=== PATIENT | female | born 1990 | race Caucasian/White ===

== ENCOUNTER 2018-10-28 14:10 | Inpatient (IN) ==
[2018-10-28 14:55] LABS: Bilirubin,Urine Negative (Negative); Blood,Urine Negative (Negative); Clarity,Urine Clear (Clear); Color,Urine Yellow (Yellow); Glucose,Urine (UA) Normal (Normal); Ketones,Urine Negative (Negative); Leukocyte Esterase,Urine Negative (Negative); Nitrite,Urine Negative (Negative); PH,Urine 5.5 pH Units (5.0-8.0); Protein,Urine Negative (Neg-Trace); Specific Gravity,Urine 1.024 (1.010-1.025); Urobilinogen,Urine Normal (Normal)
[2018-10-28] MEDS ORDERED: *HR* LORazepam 1 MG TABLET PO ONE (15:03)
[2018-10-28 15:05] LABS: Amphetamine Screen,Urine Negative ng/mL (Cutoff=1000); Barbiturate Screen,Urine Negative ng/mL (Cutoff=200); Benzodiazepines Screen,Urine Positive ng/mL (Cutoff=200); Cannabinoid Screen,Urine Positive ng/mL (Cutoff = 50); Cocaine Screen,Urine Negative ng/mL (Cutoff= 300); Opiate Screen,Urine Negative ng/mL (Cutoff=300); Phencyclidine Screen,Urine Negative ng/mL (Cutoff=25)
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
[2018-10-28 15:39] LABS: Basophils # 0.1 K/mcL (0.0-0.2); Basophils % 0.6 %; Eosinophils # 0.1 K/mcL (0.0-0.6); Eosinophils % 0.4 %; Hematocrit 35.9 % (35.3-44.9); Hemoglobin 11.7 g/dL (11.5-15.4); Immature Granulocytes % 0.4 % (0-4); Lymphocytes # 3.2 K/mcL (0.6-4.6); Lymphocytes % 22.3 %; Mean Corpuscular HGB Conc 32.6 g/dL (31.6-35.5); Mean Corpuscular Hemoglobin 28.4 pg (28.0-33.3); Mean Corpuscular Volume 87.1 fL (83.0-100.0); Mean Platelet Volume 10.1 fL (9.4-12.4); Monocytes # 0.9 K/mcL (0.0-1.3); Monocytes % 6.5 %; Platelet Count 227 K/mcL (140-400); Red Blood Count 4.12 M/mcL (3.82-4.97); Red Cell Distribution Width 14.3 % (11.5-14.5); Segmented Neutrophils % 69.8 %; White Blood Count 14.4 K/mcL (4.3-11.1)
[2018-10-28] MEDS ORDERED: Ziprasidone 20 MG in Water for inj. (sterile) 1 ML IM ONE (15:47)
[2018-10-28 15:54] LABS: Acetaminophen < 10 mcg/mL (10-20); BUN/Creatinine Ratio 26 (6-26); Blood Urea Nitrogen 17 mg/dL (6-20); Calcium 9.5 mg/dL (8.6-10.3); Carbon Dioxide 21 mEq/L (23-29); Chloride 106 mEq/L (98-107); Ethanol < 10 mg/dL (Less than 10); Glucose 86 mg/dL (70-105); Osmolality,Calculated 285 (280-300); Potassium 4.2 mEq/L (3.5-5.1); Salicylate < 2.5 mg/dL (15.0-30.0); Sodium 137 mEq/L (136-145); eGFR For African Americans > 60 (> 60); eGFR For Non-African Americans > 60 (> 60)
--- NOTE | 2018-10-28 18:44 | Emergency Department Note ---
Disposition Clinical Impression: Acute psychosis Disposition: Admitted As Inpatient Condition: Fair Time of Disposition: 18:37 General Adult HPI - General Chief complaint: ED Psychiatric Symptoms Stated complaint: psych eval/hallucinating Time Seen by Provider: 10/28/18 14:24 Source: patient, family Limitations: other (agitation) - History of Present Illness Pain Scale: 0 - Related Data Home Medications Medication Instructions Recorded Confirmed Aspirin Enteric Coated [Aspirin EC] 81 mg PO DAILY 08/12/16 10/28/18 Tizanidine HCl 4 mg PO Q8H 08/12/16 10/28/18 Buspirone HCl [Buspar] 30 mg PO BID 10/28/18 10/28/18 Cyanocobalamin (B-12) [Vitamin B12] 1,000 mcg PO DAILY 10/28/18 10/28/18 DiphenhydraMINE [Benadryl] 50 mg PO HS 10/28/18 10/28/18 Ergocalciferol (VITAMIN D2) 50,000 unit PO WE 10/28/18 10/28/18 [Vitamin D2] Gabapentin [Neurontin] 600 mg PO TID 10/28/18 10/28/18 HydrOXYzine Pamoate [Vistaril] 50 mg PO BID 10/28/18 10/28/18 Losartan [Cozaar] 100 mg PO DAILY 10/28/18 10/28/18 Magnesium Oxide [Mag-Oxide 400 mg PO DAILY 10/28/18 10/28/18 Magnesium] Metformin HCl [Metformin ER 750 mg PO BIDWM 10/28/18 10/28/18 Osmotic] Oxaprozin [Daypro] 600 mg PO BID 10/28/18 10/28/18 Venlafaxine [Effexor] 100 mg PO BID 10/28/18 10/28/18 Zolpidem [Ambien] 10 mg PO HS 10/28/18 10/28/18 Allergies Allergy/AdvReac Type Severity Reaction Status Date / Time No Known Allergies Allergy Verified 01/30/16 19:37 Constitutional: Denies: fever, chills Eyes: Denies: eye pain ENT ED: Denies: ear pain Cardiovascular: Denies: chest pain, dyspnea on exertion Respiratory: Reports: dyspnea Gastrointestinal: Reports: abdominal pain. Denies: vomiting, diarrhea Genitourinary: Reports: dysuria. Denies: urgency, frequency Musculoskeletal: Denies: back pain Integumentary: Denies: rash Neurological: Reports: headache Psychiatric: Reports: anxiety, depression, suicidal thoughts, auditory hallucinations. 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 history: Reports: polycystic ovary syndrome - Social History Smoking Status: Never smoker Smokeless Tobacco Status: No Alcohol use: Reports: none Drug use: Reports: none Physical Exam - General Limitations: other (agitation) General appearance: alert, anxious Course Vital Signs Temperature 98.0 F 10/28/18 14:11 Pulse Rate 99 10/28/18 14:11 Respiratory Rate 20 10/28/18 14:11 Blood Pressure 149/98 10/28/18 14:11 O2 Sat by Pulse Oximetry 100 10/28/18 14:11 Temperature 98.9 F 10/28/18 20:29 Pulse Rate 120 10/28/18 20:29 Respiratory Rate 16 10/28/18 20:29 Blood Pressure 157/84 10/28/18 20:29 O2 Sat by Pulse Oximetry 100 10/28/18 20:29 Oxygen Delivery Oxygen Delivery Room Air Medical Decision Making - Lab Data Result diagrams: 10/28/18 15:06 10/28/18 15:06 Lab Results 10/28/18 10/28/18 10/28/18 Range/Units 14:45 14:45 14:45 WBC (4.3-11.1) K/mcL RBC (3.82-4.97) M/mcL Hgb (11.5-15.4) g/dL Hct (35.3-44.9) % MCV (83.0-100.0) fL MCH (28.0-33.3) pg MCHC (31.6-35.5) g/dL RDW (11.5-14.5) % Plt Count (140-400) K/mcL MPV (9.4-12.4) fL Immature Gran % (0-4) % Seg Neutrophils % % Lymphocytes % % Monocytes % % Eosinophils % % Basophils % % Neutrophils # (1.6-8.9) K/mcL Lymphocytes # (0.6-4.6) K/mcL Monocytes # (0.0-1.3) K/mcL Eosinophils # (0.0-0.6) K/mcL Basophils # (0.0-0.2) K/mcL Sodium (136-145) mEq/L Potassium (3.5-5.1) mEq/L Chloride (98-107) mEq/L Carbon Dioxide (23-29) mEq/L BUN (6-20) mg/dL Creatinine (0.60-1.20) mg/dL Est GFR ( Amer) (> 60) Est GFR (Non-Af Amer) (> 60) BUN/Creatinine Ratio (6-26) Glucose (70-105) mg/dL Calculated Osmolality (280-300) Calcium (8.6-10.3) mg/dL Urine Color Yellow (Yellow) Urine Clarity Clear (Clear) Urine pH 5.5 (5.0-8.0) pH Units Ur Specific [place] 1.024 (1.010-1.025) Urine Protein Negative (Neg-Trace) mg/dL Urine Glucose (UA) Normal (Normal) mg/dL Urine Ketones Negative (Negative) mg/dL Urine Blood Negative (Negative) Urine Nitrite Negative (Negative) Urine Bilirubin Negative (Negative) Urine Urobilinogen Normal (Normal) mg/dL Ur Leukocyte Esterase Negative (Negative) Urine Test Negative (Negative) Salicylates (15.0-30.0) mg/dL Urine Opiates Screen Negative (Wjjgzb=308) ng/mL Ur Buprenorphine Scrn Negative (Cutoff=5) ng/mL Acetaminophen (10-20) mcg/mL Ur Barbiturates Screen Negative (Lvnguz=325) ng/mL Ur Phencyclidine Scrn Negative (Cutoff=25) ng/mL Ur Amphetamines Screen Negative (Xwzqlu=3388) ng/mL U Benzodiazepines Scrn Positive H (Vibfyz=948) ng/mL Urine Cocaine Screen Negative (Cutoff= 300) ng/mL U Marijuana (THC) Screen Positive H (Cutoff = 50) ng/mL Ur Drug Screen Interp See Below Ethyl Alcohol (Less than 10) mg/dL 10/28/18 10/28/18 Range/Units 15:06 15:06 WBC 14.4 H (4.3-11.1) K/mcL RBC 4.12 (3.82-4.97) M/mcL Hgb 11.7 (11.5-15.4) g/dL Hct 35.9 (35.3-44.9) % MCV 87.1 (83.0-100.0) fL MCH 28.4 (28.0-33.3) pg MCHC 32.6 (31.6-35.5) g/dL RDW 14.3 (11.5-14.5) % Plt Count 227 (140-400) K/mcL MPV 10.1 (9.4-12.4) fL Immature Gran % 0.4 (0-4) % Seg Neutrophils % 69.8 % Lymphocytes % 22.3 % Monocytes % 6.5 % Eosinophils % 0.4 % Basophils % 0.6 % Neutrophils # 10.0 H (1.6-8.9) K/mcL Lymphocytes # 3.2 (0.6-4.6) K/mcL Monocytes # 0.9 (0.0-1.3) K/mcL Eosinophils # 0.1 (0.0-0.6) K/mcL Basophils # 0.1 (0.0-0.2) K/mcL Sodium 137 (136-145) mEq/L Potassium 4.2 (3.5-5.1) mEq/L Chloride 106 (98-107) mEq/L Carbon Dioxide 21 L (23-29) mEq/L BUN 17 (6-20) mg/dL Creatinine 0.66 (0.60-1.20) mg/dL Est GFR ( Amer) > 60 (> 60) Est GFR (Non-Af Amer) > 60 (> 60) BUN/Creatinine Ratio 26 (6-26) Glucose 86 (70-105) mg/dL Calculated Osmolality 285 (280-300) Calcium 9.5 (8.6-10.3) mg/dL Urine Color (Yellow) Urine Clarity (Clear) Urine pH (5.0-8.0) pH Units Ur Specific [place] (1.010-1.025) Urine Protein (Neg-Trace) mg/dL Urine Glucose (UA) (Normal) mg/dL Urine Ketones (Negative) mg/dL Urine Blood (Negative) Urine Nitrite (Negative) Urine Bilirubin (Negative) Urine Urobilinogen (Normal) mg/dL Ur Leukocyte Esterase (Negative) Urine Test (Negative) Salicylates < 2.5 L (15.0-30.0) mg/dL Urine Opiates Screen (Dyqfdi=522) ng/mL Ur Buprenorphine Scrn (Cutoff=5) ng/mL Acetaminophen < 10 L (10-20) mcg/mL Ur Barbiturates Screen (Mdfznm=514) ng/mL Ur Phencyclidine Scrn (Cutoff=25) ng/mL Ur Amphetamines Screen (Mdphjt=1402) ng/mL U Benzodiazepines Scrn (Ofnpus=509) ng/mL Urine Cocaine Screen (Cutoff= 300) ng/mL U Marijuana (THC) Screen (Cutoff = 50) ng/mL Ur Drug Screen Interp Ethyl Alcohol < 10 (Less than 10) mg/dL Attestation Statement - Attestation Attestation: I examined this patient and my medical decision-making was reviewed with the Resident Physician. I agree with the documented findings, disposition and treatment plan as described except to the extent set forth below. Patient 28-year-old female presents to emergency department with chief complaint of talking to demons and talking to God's. Physical exam patient is awake alert and oriented. sHe has no focal neurological deficits patient is acutely psychotic in the room Medical decision management patient underwent clearance labs that were negative patient had an EKG performed that showed no evidence of acute ischemic changes. This was discussed with 1 I evaluated the patient and felt patient would benefit from acute hospitalization I personally supervised and was present for the devi/critical portions of the following procedures completed by the resident:EKG.
[2018-10-28] MEDS ORDERED: Ibuprofen 400 MG TABLET PO PRN (19:27)
[2018-10-28] MEDS ORDERED: MOM Conc 10 ML UD.LIQ PO PRN (19:27)
[2018-10-28] MEDS ORDERED: Mag Hydrox/Al Hydrox/Simeth 30 ML UDC PO PRN (19:27)
[2018-10-28] MEDS ORDERED: Haloperidol Lactate 5 MG/ML VIAL IM PRN (19:27)
[2018-10-28] MEDS ORDERED: *HR* LORazepam 2 MG/ML VIAL IM PRN (19:27)
[2018-10-28] MEDS ORDERED: *HR* LORazepam 1 MG TABLET PO PRN (19:27)
[2018-10-28] MEDS: hydrOXYzine pamoate 25 MG CAPSULE PO SCH (21:14)
[2018-10-28] MEDS: Acetaminophen 325 MG TABLET PO PRN (21:15)
[2018-10-28] MEDS: traZODone 50 MG TABLET PO PRN (22:00)
[2018-10-28] MEDS: Gabapentin 300 MG CAPSULE PO SCH (22:01)
[2018-10-28] MEDS: tiZANidine 4 MG TABLET PO SCH (22:01)
[2018-10-29] MEDS: traZODone 50 MG TABLET PO PRN ×2 (02:06→22:12)
[2018-10-29] MEDS: tiZANidine 4 MG TABLET PO SCH ×3 (04:07→20:27)
[2018-10-29] MEDS: Magnesium Oxide 400 MG TABLET PO SCH (09:24)
[2018-10-29] MEDS: Gabapentin 300 MG CAPSULE PO SCH ×3 (09:24→22:11)
[2018-10-29] MEDS: Aspirin Enteric Coated 81 MG Tablet PO SCH (09:24)
[2018-10-29] MEDS: Cyanocobalamin (B-12) 1,000 MCG TABLET PO SCH (09:24)
[2018-10-29] MEDS: *HR* Metformin 500 MG TABLET PO SCH ×2 (09:25→16:44)
[2018-10-29] MEDS: hydrOXYzine pamoate 25 MG CAPSULE PO SCH ×2 (09:26→20:27)
--- NOTE | 2018-10-29 11:24 | Psychiatry History & Physical ---
Date of Encounter: 10/29/18 Time of Encounter: 11:15 History of Present Illness Patient Stated Chief Complaint: hallucinating Medicare Admission Attestation: For traditional Medicare patients the provided hospital inpatient services are reasonable and necessary and in the case of services not specified as inpatient-only under 42 CFR 419.22 (n), that they are appropriately provided as inpatient services in accordance 42 CFR 412.3. For Critical Access Hospital the patient may reasonably be expected to be discharged or transferred to a hospital within 96 hours after admission to the Critical Access Hospital. Admitted From: Home Plans for Post Hospital Care: Home History of Present Illness: Ms. Cervantes is a 28 year old female who was admitted secondary to hallucinations and worsening depression and anxiety. Client states she has never had a mental health hospitalization before. Currently goes to "[facility]" and sees an VENEER MARKER for management of her mood disorder. Prescribed Effexor with limited benefit. Experiences SI but has never made an attempt and currently has no intent or plan. Denies current or past HI. Reportedly was delusional with christianity preoccupation and AH. Does not present that way to this keno writer/runner today. Seems anxious and lower functioning but not outwardly psychotic. Client did say she believes she has a blood clot in the back of her neck as she feels a knot and has pain there. Also believes she hears the voice of God. No responding to IS. Physically she is obese with PCOS, HTN, and Fibromyalgia. Has a medical marijuana card which client says is for Fibromyalgia. Reports THC does make her paranoid. However, she denies smoking "since being in this state." Denies other AOD use. Strong family history of mental illness. Maternal grandmother was reportedly mentally ill. A maternal cousin has Schizophrenia, a sister has Bipolar Disorder and a brother has ADHD. Discussed treatment options and client would like to try Abilify. It should help with her depression in addition to serving as an antipsychotic if needed. Past Med Surg Social Fam HX - Past Medical History Medical history: fibromyalgia, hypertension - Past Psychiatric History Psychiatric history: Reports: anxiety, depression Family psychiatric history: Yes Family Psychiatric History Details: maternal grandmother-mentally ill, maternal cousin-schizophrenia, sister-bipolar disorder, brother-adhd Family History of Suicide: None - Past Surgical History Surgical History: cholecystectomy, other - Social History Smoking Status: Never smoker Smokeless Tobacco Status: No Alcohol use: none Drug use: marijuana - Family History Mother Adopted: No Family Member Ethnicity: Non- Living Status: Still Living Hx Family Cardiac Disorders: No Hx Family Respiratory Disorders: No Hx Family Cancer: No Hx Family GI Disorders: No Hx Family Endocrine Disorder: No Hx Family Neuromuscular Disorders: No Hx Family Neurologic Disorders: Yes (seizures, neuropathy, fibromyalgia) Hx Family HEENT Disorders: No Hx Family Autoimmune Disorders: No Medications & Allergies Aspirin Enteric Coated [Aspirin EC] 81 mg PO DAILY 08/12/16 [History] Tizanidine HCl 4 mg PO Q8H 08/12/16 [History] Buspirone HCl [Buspar] 30 mg PO BID 10/28/18 [History] Cyanocobalamin (B-12) [Vitamin B12] 1,000 mcg PO DAILY 10/28/18 [History] DiphenhydraMINE [Benadryl] 50 mg PO HS 10/28/18 [History] Ergocalciferol (VITAMIN D2) [Vitamin D2] 50,000 unit PO WE 10/28/18 [History] Gabapentin [Neurontin] 600 mg PO TID 10/28/18 [History] HydrOXYzine Pamoate [Vistaril] 50 mg PO BID 10/28/18 [History] Losartan [Cozaar] 100 mg PO DAILY 10/28/18 [History] Magnesium Oxide [Mag-Oxide Magnesium] 400 mg PO DAILY 10/28/18 [History] Metformin HCl [Metformin ER Osmotic] 750 mg PO BIDWM 10/28/18 [History] Oxaprozin [Daypro] 600 mg PO BID 10/28/18 [History] Venlafaxine [Effexor] 100 mg PO BID 10/28/18 [History] Zolpidem [Ambien] 10 mg PO HS 10/28/18 [History] Allergy/AdvReac Type Severity Reaction Status Date / Time No Known Allergies Allergy Verified 01/30/16 19:37 Review of Systems Constitutional: Denies: fever, chills, weakness, weight change Eyes: Denies: eye pain, vision change Ears, Nose, Throat: Denies: ear pain, throat pain, dental pain, hearing loss, congestion Cardiovascular: Denies: chest pain, palpitations, dyspnea on exertion Respiratory: Denies: cough, dyspnea, wheezes Gastrointestinal: Denies: abdominal pain, nausea, vomiting, diarrhea, constipation Genitourinary female: Denies: urgency, dysuria, frequency, abnormal menses, dyspareunia Musculoskeletal: Denies: joint swelling, joint pain Integumentary: Denies: rash, lesions, pruritus Neurological: Denies: headache, weakness, numbness, memory loss Endocrine: Denies: fatigue, heat or cold intolerance Hematologic/Lymphatic: Denies: easy bruising, lymphadenopathy Allergic/Immunologic: Denies: urticaria, itchy eyes Exam - HEENT Head exam IM: Present: atraumatic Eye exam IM: Present: EOMI, normal appearance, PERRL ENT exam IM: Present: normal exam - Neurological Neurological exam: Present: CN II-XII intact - Respiratory Respiratory exam IM: Present: CTAB - GI/Abdominal GI/Abdominal exam IM: Present: normal bowel sounds, soft. Absent: tenderness - Extremities Extremities exam IM: Present: full ROM - Skin Skin exam IM: Present: dry, warm - Constitutional Vitals: Temp Pulse Resp BP Pulse Ox 97.7 F 105 18 143/91 100 10/29/18 09:00 10/29/18 09:00 10/29/18 09:00 10/29/18 09:00 10/29/18 09:00 General appearance: obese - Musculoskeletal Gait: normal Station: relaxed Strength & Tone: normal for patient - Psychiatric Patient Orientation: Yes Person, Yes Time, Yes Place Level of alertness: Alert Behavior: calm, cooperative Psychomotor activity: Normal Eye Contact: Maintains Eye Contact Mood Description: Depressed, Anxious Affect description: full range Speech Volume: Normal Speech pattern: normal rate, normal rhythm, normal tone, fluent, spontaneous Language & Vocabulary: consistent with education Thought Process: Linear Thought Content: No Suicidal ideation, No Homicidal ideation, No Overt delusions Perceptual Disturbances: Yes Auditory hallucinations Attention Span Ability: Capable of Focused Attention Memory Description: Grossly Intact Patient Reliability: Reliable Historian Fund of knowledge: Yes below average Intelligence Estimate: Below Average Judgment: Fair Insight: Partial Results - Drug Levels and Toxicology Drug Levels and Toxicology: Drug Levels and Toxicity 10/28/18 10/28/18 14:45 15:06 Urine Opiates Screen Negative Acetaminophen < 10 L Ur Barbiturates Screen Negative Ur Phencyclidine Scrn Negative Ur Amphetamines Screen Negative U Benzodiazepines Scrn Positive H Urine Cocaine Screen Negative U Marijuana (THC) Screen Positive H Ethyl Alcohol < 10 - Labs Labs: Laboratory Last Values WBC 14.4 K/mcL (4.3-11.1) H 10/28/18 15:06 RBC 4.12 M/mcL (3.82-4.97) 10/28/18 15:06 Hgb 11.7 g/dL (11.5-15.4) 10/28/18 15:06 Hct 35.9 % (35.3-44.9) 10/28/18 15:06 MCV 87.1 fL (83.0-100.0) 10/28/18 15:06 MCH 28.4 pg (28.0-33.3) 10/28/18 15:06 MCHC 32.6 g/dL (31.6-35.5) 10/28/18 15:06 RDW 14.3 % (11.5-14.5) 10/28/18 15:06 Plt Count 227 K/mcL (140-400) 10/28/18 15:06 MPV 10.1 fL (9.4-12.4) 10/28/18 15:06 Immature Gran % 0.4 % (0-4) 10/28/18 15:06 Seg Neutrophils % 69.8 % 10/28/18 15:06 Lymphocytes % 22.3 % 10/28/18 15:06 Monocytes % 6.5 % 10/28/18 15:06 Eosinophils % 0.4 % 10/28/18 15:06 Basophils % 0.6 % 10/28/18 15:06 Neutrophils # 10.0 K/mcL (1.6-8.9) H 10/28/18 15:06 Lymphocytes # 3.2 K/mcL (0.6-4.6) 10/28/18 15:06 Monocytes # 0.9 K/mcL (0.0-1.3) 10/28/18 15:06 Eosinophils # 0.1 K/mcL (0.0-0.6) 10/28/18 15:06 Basophils # 0.1 K/mcL (0.0-0.2) 10/28/18 15:06 Sodium 137 mEq/L (136-145) 10/28/18 15:06 Potassium 4.2 mEq/L (3.5-5.1) 10/28/18 15:06 Chloride 106 mEq/L (98-107) 10/28/18 15:06 Carbon Dioxide 21 mEq/L (23-29) L 10/28/18 15:06 BUN 17 mg/dL (6-20) 10/28/18 15:06 Creatinine 0.66 mg/dL (0.60-1.20) 10/28/18 15:06 Est GFR ( Amer) > 60 (> 60) 10/28/18 15:06 Est GFR (Non-Af Amer) > 60 (> 60) 10/28/18 15:06 BUN/Creatinine Ratio 26 (6-26) 10/28/18 15:06 Glucose 86 mg/dL (70-105) 10/28/18 15:06 Calculated Osmolality 285 (280-300) 10/28/18 15:06 Calcium 9.5 mg/dL (8.6-10.3) 10/28/18 15:06 Urine Color Yellow (Yellow) 10/28/18 14:45 Urine Clarity Clear (Clear) 10/28/18 14:45 Urine pH 5.5 pH Units (5.0-8.0) 10/28/18 14:45 Ur Specific [place] 1.024 (1.010-1.025) 10/28/18 14:45 Urine Protein Negative mg/dL (Neg-Trace) 10/28/18 14:45 Urine Glucose (UA) Normal mg/dL (Normal) 10/28/18 14:45 Urine Ketones Negative mg/dL (Negative) 10/28/18 14:45 Urine Blood Negative (Negative) 10/28/18 14:45 Urine Nitrite Negative (Negative) 10/28/18 14:45 Urine Bilirubin Negative (Negative) 10/28/18 14:45 Urine Urobilinogen Normal mg/dL (Normal) 10/28/18 14:45 Ur Leukocyte Esterase Negative (Negative) 10/28/18 14:45 Urine Test Negative (Negative) 10/28/18 14:45 Salicylates < 2.5 mg/dL (15.0-30.0) L 10/28/18 15:06 Urine Opiates Screen Negative ng/mL (Tqbnnu=755) 10/28/18 14:45 Ur Buprenorphine Scrn Negative ng/mL (Cutoff=5) 10/28/18 14:45 Acetaminophen < 10 mcg/mL (10-20) L 10/28/18 15:06 Ur Barbiturates Screen Negative ng/mL (Hgbroh=240) 10/28/18 14:45 Ur Phencyclidine Scrn Negative ng/mL (Cutoff=25) 10/28/18 14:45 Ur Amphetamines Screen Negative ng/mL (Ajnxtm=7407) 10/28/18 14:45 U Benzodiazepines Scrn Positive ng/mL (Thakfh=653) H 10/28/18 14:45 Urine Cocaine Screen Negative ng/mL (Cutoff= 300) 10/28/18 14:45 U Marijuana (THC) Screen Positive ng/mL (Cutoff = 50) H 10/28/18 14:45 Ur Drug Screen Interp See Below 10/28/18 14:45 Ethyl Alcohol < 10 mg/dL (Less than 10) 10/28/18 15:06 Assessment and Plan (1) Major depress dis, severe Current visit: Yes Status: Acute Plan: Admit inpatient for safety and stabilization, Close observation, Suicide Precautions per unit protocol, Encourage participation in unit milieu, Group Therapy, Monitor sleep, Monitor appetite Risks, benefits, side effects, alternatives discussed w/pt: Yes Patient agreeable to treatment: Yes Plans for Post Hospital Care: Home Estimated Length of Stay (Days): 4
[2018-10-29] MEDS: Acetaminophen 325 MG TABLET PO PRN (18:32)
[2018-10-29] MEDS: ARIPiprazole 5 MG TABLET PO SCH (22:12)
[2018-10-30] MEDS: Acetaminophen 325 MG TABLET PO PRN ×2 (01:32→13:33)
[2018-10-30] MEDS: tiZANidine 4 MG TABLET PO SCH ×3 (03:42→22:02)
[2018-10-30] MEDS: *HR* Metformin 500 MG TABLET PO SCH ×2 (09:06→16:05)
[2018-10-30] MEDS: Cyanocobalamin (B-12) 1,000 MCG TABLET PO SCH (09:06)
[2018-10-30] MEDS: Aspirin Enteric Coated 81 MG Tablet PO SCH (09:06)
[2018-10-30] MEDS: hydrOXYzine pamoate 25 MG CAPSULE PO SCH ×2 (09:06→22:00)
[2018-10-30] MEDS: Magnesium Oxide 400 MG TABLET PO SCH (09:06)
[2018-10-30] MEDS: Gabapentin 300 MG CAPSULE PO SCH ×3 (09:07→22:01)
[2018-10-30] MEDS: Ibuprofen 400 MG TABLET PO PRN (11:23)
--- NOTE | 2018-10-30 14:48 | Psychiatry Progress Note ---
Date of Encounter: 10/30/18 Time of Encounter: 11:00 Subjective Interval history: Client seen in common area. She appeared up beat and happy. She still endorses somatic delusion believing she "has a tumor in her neck". She endorses tactile and auditory hallucinations from "god". She describes the hallucinations as pleasant. Affect is congruent with mood. She denies any homicidal or suicidal ideation/plan or intent. Review of Systems Constitutional: Denies: fever, chills, weakness Eyes: Denies: eye pain, vision change Ears, Nose, Throat: Denies: ear pain, epistaxis, congestion, dysphagia Cardiovascular: Denies: chest pain, palpitations, dyspnea on exertion, edema, syncope Respiratory: Denies: cough, dyspnea, wheezes Gastrointestinal: Denies: abdominal pain, nausea, vomiting, diarrhea, constipation Genitourinary female: Denies: urgency, dysuria, frequency, hematuria Musculoskeletal: Reports: other (Described throbbing pain, nonlocalized on posterior neck around T1 to C7. ). Denies: back pain, joint swelling, myalgia Integumentary: Denies: rash, lesions, pruritus Neurological: Reports: headache. Denies: weakness, numbness, memory loss, vertigo Psychiatric: Reports: auditory hallucinations ("hears god"), other (Tactile hallucinations, Describes "god touches my neck when I ask him questions".). Denies: depression, anxiety, abnormal sleep pattern, suicidal ideation, homicidal ideation Results - Vital Signs Vital Signs: Temp Pulse Resp BP Pulse Ox 98 F 100 18 135/94 100 10/30/18 09:00 10/30/18 09:00 10/30/18 09:00 10/30/18 09:00 10/30/18 09:00 Assessment and Plan (1) Acute psychosis Current visit: Yes Status: Acute Plan: Continue hospitalization, Close observation, Suicide Precautions per unit protocol, Encourage participation in unit milieu, Group Therapy, Monitor sleep, Monitor appetite Additional Plan: Will continue current medications and observe for changes in client. Risks, benefits, side effects, alternatives discussed w/pt: Yes Patient agreeable to treatment: Yes Consult Discharge Plan - Plan Referrals: Marcy Fong [facility] [Outside] - Attending Attestation I examined this patient and my medical decision-making was reviewed with the Resident Physician. I agree with the documented findings, disposition and treatment plan as described except to the extent set forth below. Agree with mental status and plan. Psychiatry Exam - Constitutional Vitals: Temp Pulse Resp BP Pulse Ox 98 F 100 18 135/94 100 10/30/18 09:00 10/30/18 09:00 10/30/18 09:00 10/30/18 09:00 10/30/18 09:00 General appearance: age & developmentally appropriate, well-groomed, well- nourished, obese - Musculoskeletal Gait: normal Station: relaxed Strength & Tone: normal for patient - Psychiatric Patient Orientation: Yes Person, Yes Time, Yes Place, Yes Circumstance Level of alertness: Alert, Follows commands Behavior: calm, cooperative Psychomotor activity: Normal Eye Contact: Maintains Eye Contact Mood Description: Euthymic/stable Affect description: congruent with mood Speech Volume: Normal Speech pattern: normal rate, normal rhythm, normal tone, fluent Language & Vocabulary: consistent with education Thought Process: Intact, Logical, Linear, Goal Oriented Thought Content: Yes Intact, No Homicidal ideation, Yes Bahai delusion, Yes Somatic delusion (Client complains "I have a tumor in my neck". No history of diagnosis pertaining to neck or complaint. ) Perceptual Disturbances: Yes Auditory hallucinations, No Visual hallucinations, Yes Tactile hallucinations Attention Span Ability: Capable of Focused Attention, Capable of Sustained Attention Memory Description: Grossly Intact, Immediate Intact Patient Reliability: Reliable Historian Fund of knowledge: Yes abstraction ability Intelligence Estimate: Average Judgment: Fair Insight: Partial
[2018-10-30] MEDS: ARIPiprazole 5 MG TABLET PO SCH (22:00)
[2018-10-31] MEDS: tiZANidine 4 MG TABLET PO SCH ×3 (05:00→22:09)
--- NOTE | 2018-10-31 06:25 | Electrocardiograph Report ---
[facility] Test Date: 2018-10-28 Pat Name: Maya Cervantes Department: EXAM3 Room: 43 Gender: F Prenatal Genetic Counselor: : 1990 Requested By: Kasi Finn Order Number: [id number] Reading MD: Tyler Omer Measurements Intervals [place] Rate: 102 P: 22 IN: 142 QRS: 8 QRSD: 89 T: 16 QT: 357 QTc: 465 Interpretive Statements Sinus tachycardia Electronically Signed On 10-31-2018 6:23:37 EDT by Tyler Omer
[2018-10-31] MEDS: *HR* Metformin 500 MG TABLET PO SCH ×2 (08:21→16:52)
[2018-10-31] MEDS: Aspirin Enteric Coated 81 MG Tablet PO SCH (08:21)
[2018-10-31] MEDS: Magnesium Oxide 400 MG TABLET PO SCH (08:27)
[2018-10-31] MEDS: hydrOXYzine pamoate 25 MG CAPSULE PO SCH ×2 (08:27→20:53)
[2018-10-31] MEDS: Cyanocobalamin (B-12) 1,000 MCG TABLET PO SCH (08:28)
[2018-10-31] MEDS: Gabapentin 300 MG CAPSULE PO SCH ×3 (08:31→22:06)
--- NOTE | 2018-10-31 10:45 | Psychiatry Progress Note ---
Date of Encounter: 11/01/18 Time of Encounter: 09:30 Subjective Interval history: Client seen in the hallway. She appeared pleasant and described mood as "happy and excited to be going home". Affect is congruent with mood. She continues to endorse somatic delusion and tactile hallucination. She see describes tactile hallucination as "god touching me". She does not endorse command hallucinations telling her to harm herself or others. She denies suicidal ideation/plan/intent. She is preoccupied with getting CT after discharge from PCP. Review of Systems Constitutional: Denies: fever, chills, weakness, weight change, night sweats Eyes: Denies: eye pain, vision change Ears, Nose, Throat: Denies: ear pain, throat pain, dental pain, hearing loss, congestion Cardiovascular: Denies: chest pain, palpitations, dyspnea on exertion Respiratory: Denies: cough, dyspnea, wheezes Gastrointestinal: Denies: abdominal pain, nausea, vomiting, diarrhea, constipation Genitourinary female: Denies: urgency, dysuria, frequency, hematuria, discharge Musculoskeletal: Denies: back pain, joint swelling, joint pain, myalgia Integumentary: Denies: rash, lesions, change in hair/nails, pruritus, breast mass Neurological: Reports: headache. Denies: weakness, numbness, paresthesias, confusion, memory loss (Patient is still complaining of a headache, pressure and a buzzing sensation. These symptoms occur when she asks God questions and he r esponds to her thought the pain and buzzing. ), abnormal gait, vertigo Psychiatric: Reports: auditory hallucinations ("hears god"), other (Tactile hallucinations, Describes "god touches my neck when I ask him questions".). Denies: depression (Tactile hallucination and somatic delusion associated with her talks with God. She describes a pressure, buzzing sensation sometimes painful sensation when she asks God questions. ), anxiety, abnormal sleep pattern, suicidal ideation, homicidal ideation, confusion Endocrine: Denies: fatigue, heat or cold intolerance, polydipsia, polyuria, other Hematologic/Lymphatic: Denies: easy bleeding, easy bruising, lymphadenopathy, other Allergic/Immunologic: Denies: facial swelling, urticaria, itchy eyes, other Results - Vital Signs Vital Signs: Temp Pulse Resp BP Pulse Ox 97.6 F 120 18 130/93 97 10/31/18 06:42 10/31/18 06:42 10/31/18 06:42 10/31/18 06:42 10/31/18 06:42 Assessment and Plan (1) Acute psychosis Current visit: Yes Status: Acute Plan: Continue hospitalization, Close observation, Suicide Precautions per unit protocol, Encourage participation in unit milieu, Group Therapy, Monitor sleep Additional Plan: Will continue current medications no adjustments at this time. Will discharge tomorrow if client is still denying command hallucinations and suicide ideation/plan/intent or any thoughts of harming others or herself. Risks, benefits, side effects, alternatives discussed w/pt: Yes Patient agreeable to treatment: Yes Consult Discharge Plan - Plan Referrals: Marcy Luong [facility] [Outside] - Attending Attestation I examined this patient and my medical decision-making was reviewed with the Resident Physician. I agree with the documented findings, disposition and treatment plan as described except to the extent set forth below. Agree with mental status, assessment, and plan. Encourage groups, therapist to work on linkage. Changed from ABilify to Seroquel due to side effcts with ABilify and family hx of good response with seroquel. Spoke with mother who is comfortable taking her home tomorrow. Psychiatry Exam - Constitutional Vitals: Temp Pulse Resp BP Pulse Ox 97.6 F 120 18 130/93 97 10/31/18 06:42 10/31/18 06:42 10/31/18 06:42 10/31/18 06:42 10/31/18 06:42 General appearance: age & developmentally appropriate, well-groomed, obese - Musculoskeletal Gait: normal Station: relaxed - Psychiatric Patient Orientation: Yes Person, Yes Time, Yes Place, Yes Circumstance Level of alertness: Alert, Follows commands Behavior: calm, cooperative, talkative Psychomotor activity: Normal Eye Contact: Maintains Eye Contact Mood Description: Euthymic/stable Affect description: congruent with mood Speech Volume: Normal Speech pattern: normal rate, normal rhythm, normal tone, fluent Language & Vocabulary: consistent with education Thought Process: Intact, Linear, Goal Oriented, Blessing Thought Content: Yes Intact, No Suicidal ideation, No Homicidal ideation, Yes Preoccupation, Yes Moravian delusion Perceptual Disturbances: No Reacting to internal stimuli, Yes Auditory hallucinations, No Visual hallucinations, Yes Tactile hallucinations Attention Span Ability: Capable of Focused Attention, Capable of Sustained Attention Memory Description: Grossly Intact, Immediate Intact, Immediate Impaired Patient Reliability: Questionable Historian Fund of knowledge: Yes abstraction ability, Yes average Intelligence Estimate: Average Judgment: Fair Insight: Partial
[2018-10-31] MEDS: Ibuprofen 400 MG TABLET PO PRN (11:02)
[2018-11-01] MEDS: tiZANidine 4 MG TABLET PO SCH (04:58)
[2018-11-01] MEDS: hydrOXYzine pamoate 25 MG CAPSULE PO SCH (08:31)
[2018-11-01] MEDS: Gabapentin 300 MG CAPSULE PO SCH (08:31)
[2018-11-01] MEDS: Aspirin Enteric Coated 81 MG Tablet PO SCH (08:31)
[2018-11-01] MEDS: Cyanocobalamin (B-12) 1,000 MCG TABLET PO SCH (08:32)
[2018-11-01] MEDS: *HR* Metformin 500 MG TABLET PO SCH (08:32)
[2018-11-01] MEDS: Magnesium Oxide 400 MG TABLET PO SCH (08:32)
[2018-11-01] MEDS ORDERED: Ergocalciferol (VIT D2) 50,000 UNIT (1.25MG) CAP PO SCH (09:00)
[2018-11-01 09:20] VITALS: BP 117/87
--- NOTE | 2018-11-01 10:13 | Discharge Summary ---
Date of Encounter: 11/01/18 Time of Encounter: 08:10 Diagnosis - Discharge Diagnosis (1) Acute psychosis Status: Acute Medications - Discharge Medications Prescriptions: Quetiapine Fumarate [Seroquel] 100 mg PO BID #60 tablet Aspirin Enteric Coated [Aspirin EC] 81 mg PO DAILY 08/12/16 [History] Tizanidine HCl 4 mg PO Q8H 08/12/16 [History] Buspirone HCl [Buspar] 30 mg PO BID 10/28/18 [History] Cyanocobalamin (B-12) [Vitamin B12] 1,000 mcg PO DAILY 10/28/18 [History] DiphenhydraMINE [Benadryl] 50 mg PO HS 10/28/18 [History] Ergocalciferol (VITAMIN D2) [Vitamin D2] 50,000 unit PO WE 10/28/18 [History] Gabapentin [Neurontin] 600 mg PO TID 10/28/18 [History] HydrOXYzine Pamoate [Vistaril] 50 mg PO BID 10/28/18 [History] Losartan [Cozaar] 100 mg PO DAILY 10/28/18 [History] Magnesium Oxide [Mag-Oxide Magnesium] 400 mg PO DAILY 10/28/18 [History] Metformin HCl [Metformin ER Osmotic] 750 mg PO BIDWM 10/28/18 [History] Oxaprozin [Daypro] 600 mg PO BID 10/28/18 [History] Venlafaxine [Effexor] 100 mg PO BID 10/28/18 [History] Zolpidem [Ambien] 10 mg PO HS 10/28/18 [History] Quetiapine Fumarate [Seroquel] 100 mg PO BID #60 tablet 11/01/18 [Rx] Allergy/AdvReac Type Severity Reaction Status Date / Time No Known Allergies Allergy Verified 01/30/16 19:37 Results Procedures and tests throughout hospitalization: Completed Lab Orders Category Date Time Status Acetaminophen Stat Lab 10/28/18 15:06 Completed Basic Metabolic Panel Stat Lab 10/28/18 15:06 Completed Complete Blood Count [HEME] Stat Lab 10/28/18 15:06 Completed Drug Screen, Urine [UCHEM] Stat Lab 10/28/18 14:45 Completed Ethanol Stat Lab 10/28/18 15:06 Completed Test Result, Urine [URIN] Stat Lab 10/28/18 14:45 Completed Salicylate Stat Lab 10/28/18 15:06 Completed Urinalysis reflex Microscopic [URIN] Stat Lab 10/28/18 14:45 Completed Provider Date of admission: 10/28/18 18:44 Primary care physician: PCP NONE Consults: 10/28/18 20:15 Consult to Pastoral Services [CONS] Routine Comment: per patient request Discharging clinician: Audelia Patterson Psychiatry Exam - Constitutional Vitals: Temp Pulse Resp BP Pulse Ox 97.9 F 120 18 117/87 99 11/01/18 09:00 11/01/18 09:00 11/01/18 09:00 11/01/18 09:00 11/01/18 09:00 General appearance: age & developmentally appropriate, well-groomed, well- nourished - Musculoskeletal Gait: normal Station: relaxed Strength & Tone: normal for patient - Psychiatric Patient Orientation: Yes Person, Yes Time, Yes Place, Yes Circumstance Level of alertness: Alert Behavior: calm, cooperative Psychomotor activity: Normal Eye Contact: Maintains Eye Contact Mood Description: Euthymic/stable Patient description of mood: good Affect description: congruent with mood, full range Speech Volume: Normal Speech pattern: normal rate, normal rhythm, normal tone, fluent, spontaneous Language & Vocabulary: consistent with education Thought Process: Linear, Goal Oriented Thought Content: No Suicidal ideation, No Homicidal ideation, No Overt delusions Perceptual Disturbances: No Auditory hallucinations, No Visual hallucinations Attention Span Ability: Capable of Focused Attention Memory Description: Grossly Intact Patient Reliability: Reliable Historian Fund of knowledge: Yes abstraction ability, Yes aware of current events Intelligence Estimate: Average Judgment: Good Insight: Full Hospital Course Hospital course: Ms. Cervantes is a 28 year old female who was admitted for depression and psychosis. She was started initially on Abilify but she had side effects with this socially was changed to there "several family members have done well with. Patient was educated of diagnosis and the risk-benefit side effects of this alternative treatment options and was monitored for responsiveness and side effects. Mood anxiety sleep and appetite interest improved as did future orientation. Self-harm thoughts subsided, thinking cleared, psychosis resolved, and mood stabilized. Patient was able to attend both individual and group therapy sessions as well as meet with the psychiatrist daily and urged to discuss any medication or treatment issues or other concerns. The patient was educated primarily by verbal means about their diagnosis and manifestations in their life. The option for treatment including group and individual therapy programming was offered to the patient in addition to the use of medications with all their potential risks, benefits, and side effects as well as the risks of not taking medication and non-adhereance were discussed with the patient at length. The patient was given the opportunity to ask questions and was noted to participate in the treatment in the planning process. The patient felt ready and eager to be discharged from the inpatient psychiatric unit to continue on with treatment as an outpatient. The patient agreed that is they were safe for this disposition. The patient was considered to be able to participate in informed consent and decision making with respect to medical, legal, and financial issues of the time of discharge. At the time of discharge the patient adamantly denied any concerns for lethality including suicidal or homicidal thoughts ideations or plans and was future oriented toward ongoing mental health care, medical follow-up and sobriety. Time spent discussing smoking cessation with patient: 3 to 10 minutes Does patient wish to continue nicotine replacement upon disc: No (n/a) - Time Spent with Patient Total time spent providing and/or coordinating discharge services: 25 Less than 30 minutes Specific discharge activities: Interval history reviewed. Available labs reviewed . Psychotherapy provided. Patient had an opportunity to ask questions and address concerns. Patient was in agreement with the treatment plan. The risks benefits and side effects of medications were discussed with the patient, including alternatives and treatment. The patient was educated on the abstaining from any alcohol or illicit substances, following up with all scheduled appointments, and taking all medications as prescribed. Assessment and Plan - Patient/Caregiver Discharge Instructions Activity: resume usual activities as tolerated Diet: regular diet Additional Instructions: Continue current medications. Follow up with outpatient mental health. Encourage continued therapy in a group or individual setting. The patient was discharged to home. - Follow up Plan Follow up with: [facility] [Outside] Functional capacity at discharge: independent ambulation Overall status at discharge: Stable Disposition: Home, Self-Care Quality - Multiple Antipsychotics Patient discharged on 2 or more antipsychotic medications: No Procedures - Procedures Procedures: Medication Management, Crisis Stabilization, Supportive Therapy, Group Therapy, Psychoeducational Therapy
== END 2018-11-01 12:25 | disposition home or self-care (01) | DRG 751 ==
LOC: EMEROOARM 14:10 → 1ANU 18:44
PROVIDERS: ADMIT Psychiatry & Neurology Psychiatry; ATTEND Psychiatry & Neurology Psychiatry